=== PATIENT | male | born 1950 | race Caucasian/White ===

== ENCOUNTER 2017-03-21 01:30 | Emergency (ER) | payer MEDICARE ==
--- NOTE | ~2017-03-21 | CR252 ---
[facility] A Service of [facility] RADIOLOGY TEXT RESULTS PATIENT: ISATU LOMAX LOCATION: SED : 50 UNIT #: [id number] AGE: [address]: Bethel Edmond MD SEX: M ORDER DR: [id number] [place] [id number] MR#: [id number] Acc #: [id number] NAME: ISATU LOMAX : 1950 SEX: M STUDY DATE/TIME: 03/21/2017 2:16 UNIT: SED ROOM: STUDY DESCRIPTION: CR Tibia and Fibula 2 Views Lt Attending Physician: Bethel Edmond M.D. Ordering Physician: Bethel Edmond M.D. Primary Care Physician: Oscar Peck M.D. MEDICAL IMAGING REPORT This report is preliminary unless electronic signature is present. EXAM Left tibia/fibular INDICATION Trauma. Fall x1 day. Pain in the mid tibia. Prior fracture. FINDINGS Two views of the left tibia and fibula are compared to the left knee dated 01/27/2016. The patient has had interval left total knee arthroplasty. There is antibiotic impregnated beads within the proximal metaphysis and diaphysis. There is an old fracture of the proximal diaphysis. There is a new acute to subacute fracture within the central portion of the old fracture. There is some remodelling of the cortical bone suggesting this may be subacute. This is nondisplaced. Articulation of the ankle is anatomic. IMPRESSION Fracture through the proximal tibial diaphysis in the region of the prior fracture. Please note there is some cortical remodelling of the fracture which could indicate this is subacute, however correlate with patient's symptoms. The fracture is nondisplaced. Dictated by... Gama Bowser M.D. THIS IS AN ELECTRONICALLY VERIFIED REPORT Gama Bowser M.D. at 03/21/2017 11:38 PM Olive TD: 03/21/2017 11:34 JOB #: [id number] [facility] A Service of [facility] RADIOLOGY TEXT RESULTS PATIENT: ISATU LOMAX LOCATION: SED : 50 UNIT #: [id number] AGE: [address]: Bethel Edmond MD SEX: M ORDER DR: MEDICAL IMAGING REPORT Page 1 of 1
[~2017-03-21 01:30] MED LIST: ALBUTEROL MININEB NEB; ASPIRIN81 M2 PO; B-121000 MC1 PO; BACLOFEN10 MG PO; CALCIUM 600 +1 EAC9 PO; CLEOCIN HCL300 M1 PO; CLEOCIN PO; COUMADIN5 MG PO; COUMADIN7.5 MG PO; DAPTOMYCIN IV; DIOVAN HCT 160/1 TAB PO; FLOMAX0.4 M1 PO; FUROSEMIDE40 MG PO; MIRAPEX PO; MULTI VITAMIN1 EACH PO; NITROSTAT0.4 MG SL; OXYCODON HCL-1 UDTA1 PO; PANTOPRAZOLE SO40 MG PO; PERCOCET 10/3251 TAB PO; PROTONIX PO; RIFAMPIN300 M1 PO; ROBAXIN 750750 M1 PO; SIMVASTATIN20 MG PO; SPIRIVA18 MCG INH; SYMBICORT INH; TIZANIDINE HCL4 M1 PO; VICODIN PO; ZEGERID 40 MG C1 CAP PO
== END 2017-03-21 03:26 | disposition home or self-care (01) ==
LOC: SED 01:30
DX: S93.402A Sprain of unspecified ligament of left ankle, initial encounter (principal); Y92.009 Unspecified place in unspecified non-institutional (private) residence as the place of occurrence of the external cause; X50.9XXA Other and unspecified overexertion or strenuous movements or postures, initial encounter
CPT/HCPCS: 29530; 73590; 96372; 99283; J1170

== ENCOUNTER → 2017-05-12 | Outpatient (CLI) | payer MEDICARE ==
[2017-05-12 14:43] LABS: HEMATOCRIT 39.9 % (38.0-50.0); HEMOGLOBIN 13.2 gm/dL (13.0-16.0); MEAN CELL VOLUME 87.6 FL (83-96); MEAN CORPUSCULAR HEMOGLOBIN 29.1 PG (28-34); MEAN CORPUSCULAR HGB CONC 33.2 g/dL (30-36); MEAN PLATELET VOLUME 7.8 FL (6.5-11.5); RED BLOOD COUNT 4.55 X10e (3.90-5.60); RED CELL DISTRIBUTION WIDTH 14.5 % (11.0-15.5); WHITE BLOOD COUNT 5.9 X10e3 (4.0-10.5)
== END | disposition home or self-care (01) ==
LOC: CLAB 14:07
PROVIDERS: Orthopaedic Surgery
DX: T84.54XA Infection and inflammatory reaction due to internal left knee prosthesis, initial encounter (principal); Z96.652 Presence of left artificial knee joint
CPT/HCPCS: 36415; 85027; 85652; 86140